=== PATIENT | female | born 1965 | race Caucasian/White ===

== ENCOUNTER 2024-01-25 05:13 | Emergency (ER) | payer BC ==
[2024-01-25] MEDS: Nitroglycerin 0.4 MG Tab.SL SL ONE (05:35)
[2024-01-25] MEDS ORDERED: Sodium Chloride 0.9% 10 ML Syringe FLUSH PRN (05:39)
[2024-01-25] MEDS: Morphine 4 MG/ML VIAL IVPUSH ONE (05:50)
[2024-01-25] MEDS: Aspirin 81 MG Tab.Chew PO ONE (05:54)
[2024-01-25 06:08] LABS: BASOPHILS ABSOLUTE AUTO 0.02 K/uL (0.02-0.10); BASOPHILS PERCENT AUTO 0.2 % (0.0-0.5); EOSINOPHILS ABSOLUTE AUTO 0.05 K/uL (0.04-0.40); EOSINOPHILS PERCENT AUTO 0.6 % (1.0-5.0); HEMATOCRIT 39.7 % (37.0-47.0); HEMOGLOBIN 13.4 g/dL (11.5-16.5); LYMPHOCYTES ABSOLUTE AUTO 2.07 K/uL (1.50-4.00); LYMPHOCYTES PERCENT AUTO 25.7 % (20.0-40.0); MEAN CORPUSCULAR HEMOGLOBIN 31.5 pg (27.0-32.0); MEAN CORPUSCULAR HGB CONC 33.8 g/dL (31.0-35.0); MEAN CORPUSCULAR VOLUME 93 fL (76-96); MEAN PLATELET VOLUME 8.9 fL (6.0-10.0); MONOCYTES ABSOLUTE AUTO 0.38 K/uL (0.20-0.80); MONOCYTES PERCENT AUTO 4.7 % (3.0-10.0); NEUTROPHILS ABSOLUTE AUTO 5.52 K/uL (2.00-7.50); NEUTROPHILS PERCENT AUTO 68.8 % (45.0-70.0); PLATELET COUNT,PLT 233 K/uL (150-500); RED BLOOD CELL COUNT 4.25 M/uL (3.80-5.80); RED CELL DISTRIBUTION WIDTH 13.1 % (11.0-16.0)
[2024-01-25] MEDS: GI Cocktail Oral Solution 30 ML PO ONE (06:35)
[2024-01-25 06:40] LABS: A/G RATIO 0.9 (0.8-2.0); ALANINE AMINOTRANSFERASE,ALT 16 U/L (12-78); ALBUMIN 3.2 g/dL (3.4-5.0); ALKALINE PHOSPHATASE 60 U/L (46-116); ANION GAP 13.2 mmol/L (5.0-15.0); ASPARTATE AMNIOTRANSFERASE,AST 14 U/L (15-37); BILIRUBIN TOTAL 0.4 mg/dL (0.0-1.0); BLOOD UREA NITROGEN,BUN 15 mg/dL (8-26); BUN/CREATININE RATIO 19.7 (6-25); CALCIUM 8.2 mg/dL (8.5-10.1); CARBON DIOXIDE,CO2 26.8 mmol/L (21.0-32.0); CHLORIDE,CL 108 mmol/L (98-107); CREATININE 0.76 mg/dL (0.55-1.02); EST CRCL DRUG DOSING (CG) 63.04 mL/min; ESTIMATED GFR 90 mL/min (>60); GLUCOSE RANDOM 86 mg/dL (74-100); MAGNESIUM 1.7 mg/dL (1.8-2.4); PRO B-TYPE NATRIUR PEPT,BNPPRO 216 pg/mL (0-125); PROTEIN TOTAL,TP 6.6 g/dL (6.4-8.2); SODIUM,NA 144 mmol/L (136-145)
[2024-01-25] MEDS: Ondansetron 4 MG/2 ML SDV IVPUSH SCH (06:45)
[2024-01-25] MEDS: HYDROmorphone 2 MG/ML Syringe IVPUSH SCH (06:47)
[2024-01-25 06:51] LABS: TROPONIN I HIGH SENSITIVITY < 4.0 pg/ml (<=60.4)
[2024-01-25] MEDS: Ondansetron 4 MG/2 ML SDV ONE (06:57)
[2024-01-25] MEDS: HYDROmorphone 2 MG/ML Syringe ONE (06:59)
[2024-01-25] MEDS: Aluminum Hydroxide/Magnesium Hydroxide/Simethicone Susp 30 ML Cup PO STA (07:02)
[2024-01-25] MEDS: Sodium Chloride 0.9% 1,000 ML IV SCH (08:30)
[2024-01-25] MEDS: Ketorolac 30 MG/ML SDV IVPUSH ONE (10:33)
[2024-01-25] MEDS: Ketorolac 30 MG/ML SDV ONE (19:50)
[2024-01-27 15:45] LABS: C-REACTIVE PROTEIN 0.3 mg/dL (<=0.4)
== END 2024-01-25 10:45 | disposition home or self-care (01) ==
LOC: LB.ED 05:13
DX: R07.89 Other chest pain (principal)
CPT/HCPCS: 36415; 71045; 71250; 80053; 83690; 83735; 83880; 84484; 85025; 85379; 86140; 93005; 96361; 96374; 96375; 99285-25; A9270-GY; J1170; J1885; J2270; J2405; J7030